=== PATIENT | male | born 1995 | race Caucasian/White ===

== ENCOUNTER 2023-02-02 14:03 | Outpatient (CLI) | payer OTHER ==
--- NOTE | 2023-02-03 09:17 | MRI Report ---
PROCEDURE: KNEE WO - RT INDICATIONS: RIGHT KNEE PAIN TECHNIQUE: Noncontrast sagittal PD fast spin echo and T2 fast spin echo with fat saturation, sagittal 3-D gradie nt sequence with fat saturation; coronal T1 spin echo and PD fast spin echo with fat saturation, and axial PD fast spin echo with fat saturation through the knee. COMPARISON: None. FINDINGS: Image quality: Excellent. Menisci: Medial meniscal extrusion. There is intrasubstance degeneration in the body and posterior h orn the medial meniscus. The lateral meniscus demonstrates normal morphology and internal signal. Th e meniscal root ligaments appear intact. Cruciate ligaments: There is partial tear of the anterior cruciate ligament. The posterior cruciate ligament is intact. Medial structures: Grade 3 tear of the medial collateral ligament. The semimembranosus tendon inse rtions and meniscocapsular junction appear intact. Visualized portions of the pes anserinus tendons appear normal. No abnormal bursal fluid. Lateral structures: There is partial tear of the proximal lateral collateral ligament. The biceps fem siomara tendon is intact. There is mild edema at the popliteus musculotendinous junction consistent wit h muscle strain or contusion. The popliteus tendon appears intact. Iliotibial band appears normal. Anterior structures: The quadriceps and patellar tendons appear intact. Patellar alignment is alejandra l. No femoral trochlear dysplasia or ventral trochlear prominence. No edema in the infrapatellar fa t pad. Bones and cartilage: There are bone marrow contusions in the lateral and medial femoral condyle, the lateral and medial tibial plateaus. Mild edema is also noted in the inferior aspect of patella. The cartilage of the medial and lateral femorotibial compartments, as well as the patellofemoral comp artment, appears normal in thickness. Joint space: There is [id number] knee joint effusion with a fat-fluid level, consistent with hemarthrosis. No Laurent's cyst. Normal appearing synovial plicae are incidentally noted. IMPRESSION: 1. Partial tear of ACL. 2. Grade 3 MCL tear. 3. Partial tear of the proximal LCL. 4. Mild strain or contusion at the popliteus musculotendinous junction. The popliteus tendon is intac t. 5. Bone marrow contusions in the lateral and medial femoral condyles, as well as the lateral and medi al tibial plateaus, consistent with impaction injuries. There is also mild bone marrow edema in the i nferior patella. 6. Moderate hemarthrosis. Reviewed by: Sonia Stewart MD on 02/03/2023 8:15 AM DEB Approved by: Sonia Stewart MD on 02/03/2023 8:15 AM DEB Station ID: [id number]
== END 2023-02-02 14:04 | disposition home or self-care (01) ==
LOC: DI 14:03
DX: S83.511A Sprain of anterior cruciate ligament of right knee, initial encounter (principal); S83.411A Sprain of medial collateral ligament of right knee, initial encounter; S70.11XA Contusion of right thigh, initial encounter; S80.11XA Contusion of right lower leg, initial encounter; R93.6 Abnormal findings on diagnostic imaging of limbs; M25.061 Hemarthrosis, right knee